=== PATIENT | female | born 1970 | race Caucasian/White ===

== ENCOUNTER → 2020-01-20 11:57 | Outpatient (BNVA) | payer OTHER, SELFPAY | PROVIDERS: Family Provider Nurse Practitioner Family; Visit Provider Nurse Practitioner Family | DX: R50.9 Fever, unspecified (principal) | CPT/HCPCS: 87635 ==

== ENCOUNTER 2021-02-16 12:13 | Outpatient (CLI) | payer OTHER, SELFPAY ==
[2021-02-16 12:36] VITALS: BP 126/86; PULSE 75; RESP 18; TEMP 36.8; O2SAT 97; BMI 33.1
[2021-02-16 12:54] VITALS: BP 154/85; PULSE 60; RESP 18; TEMP 36.8; O2SAT 97
[2021-02-16 13:52] VITALS: BP 138/86; PULSE 63; RESP 17; TEMP 36.8; O2SAT 95
[2021-02-16 13:53] VITALS: BP 138/86; PULSE 63; RESP 17; TEMP 36.8; O2SAT 95
== END 2021-02-16 13:54 | disposition home or self-care (01) ==
LOC: OPS 12:14
PROVIDERS: PCP Nurse Practitioner Family; Visit Provider Nurse Practitioner Family
DX: U07.1 COVID-19 (principal)
CPT/HCPCS: 96365

== ENCOUNTER 2024-04-18 15:37 | Outpatient (CLI) | payer OTHER, SELFPAY ==
--- NOTE | 2024-04-18 15:40 | MM_ITS ---
WS: [id number] BILATERAL SCREENING DIGITAL TOMOSYNTHESIS MAMMOGRAM WITH CAD HISTORY: SCREENING COMPARISON: 01/20/2022, 05/09/2017 Bilateral CC and MLO views with tomosynthesis and synthetic mammography submitted. Computer aided det ection analyzed. Breast composition: There are scattered areas of fibroglandular density. No suspicious masses, microc alcifications or architectural distortion. Scattered asymmetries and nodules are stable. No suspiciou s area of distortion. No microcalcifications. MM/MM scr BI tomosynthesis [id number] IMPRESSION: BI-RADS: 2 - Benign. FOLLOW UP: 1 Year Follow-up
== END 2024-04-18 15:38 | disposition home or self-care (01) ==
LOC: MOBLMAM 15:37
PROVIDERS: PCP Nurse Practitioner Family; Visit Provider Nurse Practitioner Family
DX: Z12.31 Encounter for screening mammogram for malignant neoplasm of breast (principal); R92.323 Mammographic fibroglandular density, bilateral breasts; N64.89 Other specified disorders of breast
CPT/HCPCS: 77063; 77067